=== PATIENT | female | born 2000 | race African-American/Black ===

== ENCOUNTER 2023-01-16 16:22 | Outpatient (CLI) | payer OTHER ==
[2023-01-16 16:51] LABS: ALBUMIN 4.1 g/dL (3.2-5.5); ALKALINE PHOSPHATASE 78 IU/L (42-121); ALT ALANINE AMINOTRANSFERASE 14 IU/L (10-60); AST ASPARTATE AMINOTRANSFERASE 13 IU/L (10-42); BILIRUBIN,DIRECT < 0.10 mg/dL (0.03-0.18); BILIRUBIN,TOTAL 0.3 mg/dL (0.2-1.0)
== END 2023-01-16 16:23 | disposition home or self-care (01) ==
LOC: LAB 16:22
PROVIDERS: ATTEND Internal Medicine Pulmonary Disease
DX: E84.0 Cystic fibrosis with pulmonary manifestations (principal)
CPT/HCPCS: 36415; 80076

== ENCOUNTER 2023-04-09 17:09 | Outpatient (CLI) | payer OTHER ==
--- NOTE | 2023-04-12 02:47 | Ultrasound Report ---
PROCEDURE: OB 1st Trimester w/TV INDICATIONS: POSITIVE TEST OUTSIDE/PRIOR DATING DATA: Last menstrual period (LMP): 01/26/2023. LMP-based estimated date of delivery (JORGE): 11/05/2023. First dating scan (date and location): 04/09/2023. Estimated date of delivery (JORGE) from first dating scan: 11/02/2023. TECHNIQUE: Real-time scanning was performed of the fetus and maternal pelvic organs, with image documentation. Endovaginal scanning was also performed to better visualize the fetus and maternal ovaries. COMPARISON: None. FINDINGS: Intrauterine gestational sac present. Embryo: Mean gestational sac diameter of 3.99 cm corresponding to age of 9 weeks, 3 days. [place] n-rump length measures 3.47 cm corresponding to estimated age of 10 weeks, 3 days. Heart rate: 171 bpm. Other: Probable perigestational fluid collection measuring 2.4 x 1.5 x 2.0 cm. Measurement variability in dating: +/- 4 weeks by LMP, +/- 7 days by mean sac diameter (use before 6 weeks gestation if crown-rump length not able to be measured), +/- 5 days by crown-rump length (6-12 weeks gestation). Maternal organs: Ovaries appear within normal limits. Left corpus luteum cyst. IMPRESSION: No intrauterine gestation with a crown-rump length of 3.47 cm corresponding to age of 10 weeks, 3 days. heart rate of 171 bpm. Perigestational fluid collection measuring up to 2.4 cm. Reviewed by: Samanta Chatman MD on 04/12/2023 2:46 AM PST Approved by: Samanta Chatman MD on 04/12/2023 2:46 AM PST Station ID: [id number]
== END 2023-04-09 17:10 | disposition home or self-care (01) ==
LOC: DI 17:09
PROVIDERS: ATTEND Obstetrics & Gynecology
DX: O09.891 Supervision of other high risk pregnancies, first trimester (principal); Z3A.10 10 weeks gestation of pregnancy

== ENCOUNTER 2023-04-12 08:00 | Outpatient (CLI) | payer BC, OTHER ==
[2023-04-12 18:20] LABS: CHLAMYDIA TRACHOMATIS DNA NEGATIVE (NEGATIVE); NEISSERIA GONORRHOEAE DNA NEGATIVE (NEGATIVE); TRICHOMONAS VAGINALIS DNA NEGATIVE (NEGATIVE)
== END 2023-04-12 23:59 | disposition home or self-care (01) ==
LOC: LAB.WC 08:00
PROVIDERS: ATTEND Obstetrics & Gynecology
DX: Z11.3 Encounter for screening for infections with a predominantly sexual mode of transmission (principal)
CPT/HCPCS: 87491; 87591; 87661

== ENCOUNTER 2023-04-12 10:37 | Outpatient (CLI) | payer OTHER ==
[2023-04-12 11:05] LABS: BASOPHILS % (AUTO) 0.5 %; EOSINOPHILS # (AUTO) 0.1 10^3/uL (0.0-0.7); EOSINOPHILS % (AUTO) 0.9 %; HCT - HEMATOCRIT 38.8 % (37.0-47.0); LYMPHOCYTES # (AUTO) 1.5 10^3/uL (1.5-3.5); LYMPHOCYTES % (AUTO) 16.9 %; MEAN CORPUSCULAR HEMOGLOBIN 24.7 pg (27.0-31.0); MEAN CORPUSCULAR HGB CONC 30.9 g/dL (32.0-36.0); MEAN CORPUSCULAR VOLUME 79.8 fL (81.0-99.0); MEAN PLATELET VOLUME 10.3 fL (7.9-10.8); MONOCYTES # (AUTO) 0.4 10^3/uL (0.0-1.0); MONOCYTES % (AUTO) 5.1 %; NEUTROPHILS # (AUTO) 6.5 10^3/uL (1.5-6.6); NEUTROPHILS % (AUTO) 75.8 %; PLT - PLATELET COUNT 250 10^3/uL (130-450); RED BLOOD COUNT 4.86 10^6/uL (4.20-5.40); WHITE BLOOD COUNT 8.6 x10^3/uL (4.8-10.8)
[2023-04-12 11:31] LABS: BILIRUBIN,URINE NEGATIVE (NEGATIVE); GLUCOSE, URINE (UA) NEGATIVE (NEGATIVE); KETONES,URINE (UA) NEGATIVE (NEGATIVE); LEUKOCYTE ESTERASE, URINE NEGATIVE (NEGATIVE); NITRITE,URINE NEGATIVE (NEGATIVE); OCCULT BLOOD,URINE NEGATIVE (NEGATIVE); PROTEIN,URINE NEGATIVE (NEGATIVE); UROBILINOGEN,URINE 0.2 (NORMAL) E.U./dL (NORMAL)
[2023-04-12 11:35] LABS: THYROID STIMULATING HORMONE 1.11 uIU/mL (0.34-5.60)
[2023-04-12 11:37] LABS: CLARITY,URINE CLEAR (CLEAR)
[2023-04-12 11:41] LABS: FERRITIN 47.7 ng/mL (11.0-306.8)
[2023-04-12 11:48] LABS: CREATININE,URINE 167.1 mg/dL; PROTEIN/CREATININE RATIO,URINE 0.1 (<=0.2)
[2023-04-12 11:59] LABS: BACTERIA,URINE Few /HPF (None Seen); RBC,URINE 0-5 /HPF (0-5); SQUAMOUS EPITHELIAL CELL,UR MOD Squamous (<= Few); WBC,URINE 0-3 /HPF (0-5)
[2023-04-12 12:35] LABS: ESTIMATED AVERAGE GLUCOSE 108 mg/dL (70-100); HEMOGLOBIN A1c% 5.4 % (4.27-6.07)
[2023-04-13 05:12] LABS: HBsAG SCREEN Negative (Negative)
[2023-04-13 06:10] LABS: RPR Non Reactive (Non Reactive)
[2023-04-13 09:09] LABS: HCV AB Non Reactive (Non Reactive); HIV SCREEN 4TH GENERATION Non Reactive (Non Reactive); VARICELLA-ZOSTER AB IGG <135 index (Immune >165)
== END 2023-04-12 10:38 | disposition home or self-care (01) ==
LOC: LAB 10:37
PROVIDERS: ATTEND Internal Medicine Pulmonary Disease
DX: O09.891 Supervision of other high risk pregnancies, first trimester (principal); E55.9 Vitamin D deficiency, unspecified
CPT/HCPCS: 36415; 81001; 82306; 82570; 82728; 83036; 84156; 84443; 85025; 86592; 86762; 86787; 86803; 86850; 86900; 86901; 87086; 87340; 87389

== ENCOUNTER 2023-08-16 14:05 | Emergency (ER) | payer OTHER ==
--- NOTE | 2023-08-16 14:46 | ED Physician Documentation ---
PD HPI LOWER EXT INJURY - Stated complaint Stated Complaint: RT LEG PX - Chief complaint Chief Complaint: Ext Problem - History obtained from History obtained from: Patient - Additional information Additional information: Patient is a 23-year-old female With a history of cystic fibrosis who is approximately 28 weeks presenting for evaluation of right calf pain that she noticed this morning. Her did massage the area which did seem to help a little bit with the pain but she does still have some discomfort.Denies trauma to the leg. She was in the car yesterday for approximately 5 hours. No history of DVT or PE in the past. This is complicated with gestational diabetes. She is a . Reports having some issues with blood sugar and blood pressure towards the end of her with first . She follows with a specialist in [place] given her history of cystic fibrosis. She has noted that in the last week her blood pressure has been slightly elevated. Denies headache, dizziness, leg swelling, chest pain, shortness of air. No abdominal cramping, vaginal bleeding or discharge. She is feeling baby move. Review of Systems Musculoskeletal: reports: Extremity pain PD PAST MEDICAL HISTORY - Past Medical History Past Medical History: Yes Endocrine/Autoimmune: Other Other Past Medical History: Gestational DM with this and HTN with last . - Past Surgical History Past Surgical History: Yes /IN[employer]UMENT [employer]ER: section HEENT: Other - Allergies Allergies/Adverse Reactions: Allergies Allergy/AdvReac Type Severity Reaction Status Date / Time No Known Drug Allergies Allergy Verified 08/16/23 14:08 - Social History Does the pt smoke?: No Smoking Status: Never smoker Does the pt drink ETOH?: No Does the pt have substance abuse?: No - Immunizations Immunizations are current?: Yes - POLST Patient has POLST: No PD ED PE NORMAL - General General: Alert and oriented X 3, No acute distress, Well developed/nourished - HEENT HEENT: Atraumatic - Neck Neck: Supple, no meningeal sign - Cardiac Cardiac: RRR, Strong equal pulses - Respiratory Respiratory: No respiratory distress - Derm Derm: Warm and dry - Extremities Extremities: No deformity, No edema, Other (Mild tenderness to localized area of right calf, no redness or rash) - Neuro Neuro: Alert and oriented X 3, No motor deficit, No sensory deficit, Normal speech Results - Vitals Vitals: Vital Signs - 24 hr 08/16/23 08/16/23 14:08 14:30 Temperature 36.5 C Heart Rate 84 88 Respiratory 16 22 Rate Blood Pressure 169/96 H 134/67 H O2 Saturation 99 98 Oxygen O2 Source Room air Departure - Departure Disposition: 01 Home, Self Care Clinical Impression: Right calf pain, Elevated blood pressure reading Condition: Stable Instructions: ED Strain Muscle Ext Comments: Your ultrasound does not show signs of a blood clot in your leg. Your initial blood pressure at triage was quite elevated but it did improve on rechecks. Please continue to have close follow-up with your OB. Return to the ER with any worsening symptoms. Forms: PCP List
--- NOTE | 2023-08-16 16:13 | Ultrasound Report ---
PROCEDURE: Duplex Ext Veins Right INDICATIONS: R calf pain/28 weeks preg TECHNIQUE: Real-time imaging, as well as color and pulse Doppler interrogation, were performed of the lower extr emity deep veins from the inguinal ligament to the popliteal fossa. Attempted visualization of the ca lf veins was performed. COMPARISON: None. FINDINGS: The deep veins are normally compressible, and free of intraluminal thrombus. Color and pu lse Doppler demonstrate normal phasic intraluminal flow. There is normal augmentation response to di stal compression maneuver. IMPRESSION: No deep venous thrombosis of the visualized lower extremity. Reviewed by: Jorge Luis Doherty MD on 08/16/2023 4:12 PM PDT Approved by: Jorge Luis Doherty MD on 08/16/2023 4:12 PM PDT Station ID: [id number]
[2023-08-16 16:31] VITALS: BP 124/102; O2SAT 99
== END 2023-08-16 16:28 | disposition home or self-care (01) ==
LOC: ED 14:05
DX: O26.893 Other specified pregnancy related conditions, third trimester (principal); M79.604 Pain in right leg; R03.0 Elevated blood-pressure reading, without diagnosis of hypertension; E84.9 Cystic fibrosis, unspecified; O24.419 Gestational diabetes mellitus in pregnancy, unspecified control; O34.219 Maternal care for unspecified type scar from previous cesarean delivery; Z3A.28 28 weeks gestation of pregnancy
CPT/HCPCS: 99283; 99284